=== PATIENT | female | born 1990 | race Caucasian/White ===

== ENCOUNTER 2025-02-19 20:30 | Emergency (ER) | payer OTHER, SELFPAY ==
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
[2025-02-19 20:33] VITALS: BP 157/97; PULSE 95; RESP 18; TEMP 36.7; O2SAT 98
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
--- OUTSIDE RECORDS SUMMARY | 2025-02-19 21:11 | XMS_ITS | Clinical Summary ---
Author Organization [facility] Medical Office Building B Address [address] [place] [address] Care Team Providers Care Ground Hand Name Role Phone Carmen Adame MD Unavailable [phone] Laura Reza Primary Care Provider + [phone] Allergies No known active allergies Medications desogestreL-ethi nyl estradioL (Isibloom) 0.15-0.03 mg per tablet Take 1 tablet by mouth daily 84 tablet 3 06/21/2024 Active Active Problems Problem Noted Date Diagnosed Date Elevated LFTs 05/25/2024 Acute pancreatitis, unspecif ied complication status, unspecified pancreatitis type 05/24/2024 Morbid obesity with BMI of 40.0-44.9, adult 12/2020 Assessment & Plan (04/01/2023 5:58 AM CDT): Encourage a weight loss program such as WW ( Weight Watchers) incorporating dietary changes and aerobic / weight-bearing exercise at least 4-5 times per week, for at least 30-45 minute sessions. Assessment & Plan (03/25/2022 1:43 PM CDT): Encourage a weight loss program such as WW (Weight Watchers) incorporating dietary changes and aerobic / weight-bearing exercise at least 4-5 times per week, for at least 30-45 minute sessions. Assessment & Plan (01/14/2021 3:46 PM FACILITY MAINTENANCE TECHNICIAN): Encourage a weight loss program such as Weight Watchers incorporating dietary changes and aerobic / weight-bearing exercise at least 4-5 times per week, for at least 30-45 minute sessions. No pathologic diagnosis 03/31/2014 Overview (02/17/2017): No diagnosis Surgical History Surgery Date Site/Laterality Comments COLPOSCOPY 06/21/2018 Medical History Medical History Date Comments Abnormal Pap smear of cervix 09/16/2017 LSI L + HPV Family History Medical History Relation Name Comments Diabetes Father's Sister Diabetes miguel litus; Relation Name Status Comments Father's Sister Social History Tobacco Use Types Packs/Day Years Used Date Smoking Tobacco: Never Smokeless Tobacco: Never Tobacco Cessation:Counseling Given: Not Answered Alcohol Use Standard Drinks/Week Comments No 0 (1 standard drink = 0.6 oz pur e alcohol) [facility] [employer] Answer Date Recorded In the past 12 months has [employer], [employer], oil, or water [employer] threatened to shut off services in your home? No 05/25/2024 Humiliation, Afraid, Rape, and Kick questionnair e Answer Date Recorded Within the last year, have y ou been afraid of your partner or ex-partner? No 05/25/2024 Within the last year, have y ou been humiliated or emotionally abused in other ways by your partner or ex-partner? No Within the last year, have y ou been kicked, hit, slapped, or otherwise physically hurt by your partner or ex-partner? No 05/25/2024 Within the last year, have y ou been raped or forced to have any kind of sexual activity by your partner or ex-partner? No 05/25/2024 Social Connection and Isolat ion Panel [NHANES] Answer Date Recorded In a typical week, how many times do you talk on the phone with family, friends, or neighbors? More than three times a week 05/25/2024 How often do you get togethe r with friends or relatives? Three times a week 05/25/2024 How often do you attend [facility] or jewish services? Never 05/25/2024 Do you belong to any clubs o r organizations such as quaker groups, unions, fraternal or athletic groups, or school groups? Yes 05/25/2024 How often do you attend meet ings of the clubs or organizations you belong to? More than 4 times per year 05/25/2024 Are you , , di vorced, , never , or living with a partner? Living with partner 05/25/2024 AUDIT-C Answer Date Recorded Q1: How often do you have a drink containing alc ohol? Never 06/30/2024 Q2: How many drinks containi ng alcohol do you have on a typical day when you are drinking? 3 or 4 06/30/2024 Q3: How often do you have six or more drinks on one occasion? Monthly 06/30/2024 Overall Financial Resource Strain (CARDIA) Answe r Date Recorded How hard is it for you to pa y for the very basics like food, housing, medical care, and heating? Not hard at all 05/25/2024 PHQ-2 Answer Date Recorded PHQ-2 Total Score (If total score is 3 or more points, staff should administer the PHQ-9) 0 05/25/2024 [facility] - Occupational Stress Questionnaire Answer Date Recorded Do you feel stress - tense, restless, nervous, or anxious, or unable to sleep at night because your mind is troubled all the time - these days? Only a little 05/25/2024 Exercise Vital Sign Answer Date Recorde d On average, how many days pe r week do you engage in moderate to strenuous exercise (like a brisk walk)? 4 days 05/25/2024 On average, how many minutes do you engage in exercise at this level? 30 min 05/25/2024 Hunger Vital Sign Answer Date Recorded Within the past 12 months, y ou worried that your food would run out before you got the money to buy more. Never true 05/25/20 24 Within the past 12 months, t he food you bought just didn't last and you didn't have money to get more. Never true 05/25/2024 PRAPARE - Transportation Answer Date Re corded In the past 12 months, has l ack of transportation kept you from medical appointments or from getting medications? No 05/15 In the past 12 months, has l ack of transportation kept you from meetings, work, or from getting things needed for daily living? No 05/25/2024 PHQ-9 Answer Date Recorded PHQ-9 Total Score 0 05/25/2024 Housing Stability Vital Sign Answer Jassi e Recorded In the last 12 months, was t here a time when you were not able to pay the mortgage or rent on time? No 05/25/2024 In the past 12 months, how m any times have you moved where you were living? 1 05/25/2024 At any time in the past 12 m [facility], were you homeless or living in a long-term (including now)? No 05/25/2024 Personal Safety Answer Date Recorded Have you ever been in or are you currently in a harmful physical or emotional relationship or is someone making you feel afraid or unsafe? Denies 05/24/2024 Education Answer Date Recorded What is the highest level of school you have completed or the highest degree you have received? 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 Gender Identity Not on file Sexual Orientation Not on file Obstetrics History Para Term AB IAB SAB Ectopic Multiple Livin g Live Births 0 0 0 0 0 0 0 0 0 0 0 Last Filed Vital Signs Vital Sign Reading Time Taken Comments Blood Pressure 126/83 06/30/2024 1:54 PM CDT Pulse 74 06/30/2024 1:54 PM CDT Temperature 36.5 C (97.7 F) 05/25/2024 3:21 PM CDT Respiratory Rate 17 05/25/2024 3:21 PM CDT Oxygen Saturation 98% 06/30/2024 1:54 PM CDT Inhaled Oxygen Concentration - - Weight 108.3 kg (238 lb 11.2 oz) 06/30/2024 1:54 PM CDT Height 167.6 cm (5' 6 ) 06/30/2024 1:54 PM CDT Body Mass Index 38.53 06/30/2024 1:54 PM CDT Plan of Treatment Health Maintenance Due Date Last Done Comments Hepatitis C Screening 1992 Varicella Vaccines (1 of 2 - 13+ 2-dose series) 2005 DTaP/Tdap/Td Vaccine (6 - Tdap) 06/16/2007 06/15/2007, 02/08/1998, 07/17/1994, Additional history exists HPV Vaccines (2 - 3-dose series) 03/21/2009 02/21/2009 Cervical Cancer Screening 03/31/20242022, 03/25/2022, 01/14/2021, Additional history exists Covid-19 Vaccine ( season) 2024 04/24/2021 Regular Well Visit/Exam 18-64 04/04/2025 04/04/2024, 03/31/2023, 03/25/2022, Additional history exists Depression Screening 05/25/2025 05/25/2024, 04/04/2024, 03/25/2022, Additional history exists Influenza Vaccine (Season Ended) 2025 Hepatitis B Screening Completed 12/09/1993 , 1992, 1992 Pneumococcal vaccine <65 Aged Out No longer eligible based on patient's age to complete this topic Procedures Procedure Name Priority Date/Time Associated Diagnosis Comments PAP AND HIGH RISK HPV, REFLEX TO GENOTYPING Routine 03/31/2023 4:09 PM CDT Well woman exam from Last 3 Months or Most Recently Relevant to Health Maintenance Results * Pap and High Risk HPV, reflex to Genotyping (03/31/2023 4:09 PM CDT) CLINICAL INFORMATION: [facility] Comment:None given LMP [facility] Comment:None given Previous Pap [facility] Comment:None given Prev. Bx [facility] Comment:None given SOURCE: [facility] Comment:Cervix, Endocervix Pap, specimen adequacy [facility] Comment: Satisfactory for evaluation. Endocervical/transformation zone component present. Age and/or menstrual status not provided HPV interp [facility] Comment:Negative for intraep ithelial lesion or malignancy. Warp Tension Tester Que [facility] Comment: TLS, CT(ASCP) CT Screening Location: [place] [address] Comment [facility] Comment: EXPLANATORY NOTE: The Pap is a screening test for cervical cancer. It is not a diagnostic test and is subject to false negative and false positive results. It is most reliable when a satisfactory sample, regularly obtained, is submitted with relevant clinical findings and history, and when the Pap result is evaluated along with historic and current clinical information. Human papillomavirus DNA, High Risk E6/E7 Not Detected NOT DETECTED [facility] Comment: Not Detected High Risk HPV types (16,18,31,33,35,39,45,51,52, 56,58,59,66,68) were not detected. Other HPV types which cause anogenital lesions may be present. The significance of the other types of HPV in malignant processes has not been established. Methodology: Real Time PCR Thin prep 03/31/2023 4:09 PM CDT 04/01/2023 3:42 AM CDT Sherita Campos MACHINE [facility] CYTOLOGY ORDERABLES F inal Result [facility] [address] [place] [address] [facility] [address] [facility] [place] [address] from Last 3 Months or Most Recently Relevant to Health Maintenance [facility] Advance Directives For more information, please contact: [phone] * Full Code (Latest Code Status on File) Date Activated Date Inactivated Comments 05/24/2024 1:00 PM 05/25/2024 10:58 PM Care Teams Ground Hand Relationship Specialty Start Date End Date Laura Reza PA 2 [facility] ELISEOChrissy CRUZ [address] [address] PCP - General Bi Lead 06/30/24 Carmen Adame MD 4 [facility] [address] [address] Consulting Physician Gastroenterology 05/25/24
--- OUTSIDE RECORDS SUMMARY | 2025-02-19 21:11 | XMS_ITS | Referral Summary ---
Author Organization [facility] Medical Office Building B Address [address] [place] [address] Care Team Providers Care Chief Technician X Ray Name Role Phone Carmen Adame MD Unavailable [phone] Laura Reza Primary Care Provider + [phone] Allergies No known active allergies Medications desogestreL-ethi [...] sessions. Assessment & Plan (01/14/2021 3:46 PM ADJUNCT INSTRUCTOR CHEMISTRY): Encourage a weight loss program such as Weight Watchers incorporating dietary changes and aerobic / weight-bearing exercise at least 4-5 times per week, for at least 30-45 minute sessions. No pathologic diagnosis 03/31/2014 Overview (02/17/2017): No diagnosis Social History Tobacco Use Types Packs/Day Years Used Date Smoking Tobacco: Never Smokeless Tobacco: Never Tobacco Cessation:Counseling Given: Not Answered Alcohol Use Standard Drinks/Week Comments No 0 (1 standard drink = 0.6 oz pur e alcohol) [facility] Utilities Answer Date Recorded In the past 12 months has e [employer], gas, oil, or water [employer] threatened to shut off services in your [...] week 05/25/2024 How often do you attend chur ch or oriental orthodox services? Never 05/25/2024 Do you belong to any clubs o r organizations such as moravian groups, unions, fraternal or athletic groups, or [...] staff should administer the PHQ-9) 0 05/25/2024 [facility] - Occupational Stress Questionnaire Answer Date Recorded [...] any time in the past 12 m [facility], were you homeless or living in a care home (including now)? 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 Gender Identity Not on file Sexual Orientation Not on file Last Filed Vital Signs Vital Sign Reading [...] 06/30/2024 1:54 PM CDT Plan of Treatment Not on file Procedures Procedure Name Priority Date/Time Associated Diagnosis Comments PAP AND HIGH RISK HPV, REFLEX TO GENOTYPING Routine 03/31/2023 4:09 PM CDT Well woman exam from Last 3 Months or Most Recently Relevant to Health Maintenance Results * Pap and High Risk HPV, reflex to Genotyping (03/31/2023 4:09 PM CDT) CLINICAL INFORMATION: [facility] Comment:None given LMP [facility] Comment:None given Previous Pap [facility] Comment:None given Prev. Bx [facility] Comment:None given SOURCE: [facility] Comment:Cervix, Endocervix Pap, specimen adequacy [facility] Comment: Satisfactory for evaluation. Endocervical/transformation zone component present. Age and/or menstrual status not provided HPV interp [facility] Comment:Negative for intraep ithelial lesion or malignancy. [facility] Comment: TLS, CT(ASCP) CT Screening Location: [address] [address] Comment [facility] Comment: EXPLANATORY NOTE: The Pap is [...] High Risk E6/E7 Not Detected NOT DETECTED [facility] Comment: Not Detected High Risk HPV types (16,18,31,33,35,39,45,51,52, 56,58,59,66,68) were not detected. Other HPV types which cause anogenital lesions may be present. The significance of the other types of HPV in malignant processes has not been established. Methodology: Real Time PCR Thin prep 03/31/2023 4:09 PM CDT 04/01/2023 3:42 AM CDT Sherita Campos [facility] CYTOLOGY ORDERABLES F inal Result [address] [address] Dick Thomas/[place] [address] [facility] [place] [address] from Last 3 Months or Most Recently Relevant to Health Maintenance Insurance [facility] HMO Advance Directives For more information, please contact: [phone] * Full Code (Latest Code Status on File) Date Activated Date Inactivated Comments 05/24/2024 1:00 PM 05/25/2024 10:58 PM Care Teams Chief Technician X Ray Relationship Specialty Start Date End Date Laura Reza PA 2 [facility] ANTHONY [facility] [address] [place] [address] PCP - General Mica Washer Gluer 06/30/24 Carmen Adame MD [address] [place] [address] [address] [place] [address] Consulting Physician Gastroenterology 05/25/24
--- OUTSIDE RECORDS SUMMARY | 2025-02-19 21:11 | XMS_ITS | Clinical Summary ---
Author Organization [facility] Address [address] [place] [address] Care Team Providers Care Area Representative Name Role Phone Laura Reza Primary Care Provider + Joselo Ortega MD Unavailable Allergies No known active allergies Medications Isibloom 0.15-30 MG-MCG Tablet 10/28/2022 Activ e Multiple Vitamin (MULTIVITAMIN PO) Take by mouth. Active Multivitamin-Min erals (Hair Skin & Nails Advanced) Tablet Take 1 Tablet by mouth daily. Active COLLAGEN PO Take by mouth. Active Bacillus Coagulans-Inulin (PROBIOTIC-PREBI OTIC PO) Take by mouth. Active Active Problems No known active problems Immunizations Immunization Administration Dates Next Due Covid-19, Mrna, Lnp-s, Pf, 3 0 Mcg/0.3 Ml Dose ([employer]) 04/24/2021 DTP Vaccine 02/08/1998, 4,05/09/1993,02/18,1992 Hepatitis B Vaccine, Pediatric/adolescent 12/09/1993,1992,1992 Hib Vaccine,unspecified Formulation 12/1993,05/09/1993,02/18/1993,12/30 Human Papillomavirus (HPV) V accine, Bivalent 02/21/2009 MMR Vaccine 02/08/1998,03/16/1994 Meningococcal Vaccine, Unspe cified Formulation 02/21/2009 Polio Vaccine,unspecified Formulation 02/08/1998 TD VACCINE 06/15/2007 Family History Medical History Relation Name Comments No Known Problems Father No Known Problems Half-Brother No Known Problems Maternal Grandfather Chronic Obstructive Pulmonary Disease Maternal Grandmo ther Depression Mother Other-comment Mother Vasculitis Rheumatoid Arthritis Mother Dementia Paternal Grandmother Diabetes Paternal Uncle Relation Name Status Comments Father Alive Half-Brother Alive Maternal Grandfather Alive Maternal Grandmother Mother Alive Paternal Grandfather Paternal Grandmother Paternal Uncle Social History Tobacco Use Types Packs/Day Years Used Date Smoking Tobacco: Never Smokeless Tobacco: Never Tobacco Cessation:Counseling Given: Not Answered Alcohol Use Standard Drinks/Week Comments Yes 0 (1 standard drink = 0.6 oz pur e alcohol) socially Sexually Active Control Partners Comments Yes Male Comments Unknown Sex and Gender Information Value Date Recorded Sex Assigned at Not on file Legal Sex Female 5:17 PM CDT Gender Identity Not on file Sexual Orientation Not on file Last Filed Vital Signs Vital Sign Reading Time Taken Comments Blood Pressure 120/74 12/21/2023 4:26 PM PRODUCTION PATTERN MAKER Pulse 101 12/21/2023 4:26 PM PRODUCTION PATTERN MAKER Temperature 38.7 C (101.7 F) 12/21/2023 4:26 PM PRODUCTION PATTERN MAKER Respiratory Rate 16 12/21/2023 4:26 PM PRODUCTION PATTERN MAKER Oxygen Saturation 99% 12/21/2023 4:26 PM PRODUCTION PATTERN MAKER Inhaled Oxygen Concentration - - Weight 114.3 kg (252 lb) 03/02/2023 9:26 AM CDT Height 165.1 cm (5' 5 ) 03/02/2023 9:26 AM CDT Body Mass Index 41.93 03/02/2023 9:26 AM CDT Plan of Treatment Health Maintenance Due Date Last Done Comments Hepatitis C Virus (HCV) Screening 1992 DTaP/Tdap/Td Immunization (6 - Tdap) 06/16/2007 06/15/2007, 02/08/1998, 07/17/1994, Additional history exists HPV/Cotest 2022 Influenza Immunization (#1) 2024 SARS-COV-2 Immunization ( season) 2024 04/24/2021 Cervical Cancer Screening (CCS) 03/19/2025 Pap Smear 03/19/2025 03/19/2022 Respiratory Syncytial Virus (RSV) Immunization (Adult) (1 - 1-dose 75+ series) 2067 Hepatitis B Immunization Completed 994, 1992, 1992 Meningococcal Immunization (ACWY) Completed 02/21/2009 Pneumococcal Immunization Combined Aged Out No longer eligible based on patient's age to complete this topic Rotavirus Immunization Aged Out No lo nger eligible based on patient's age to complete this topic Insurance [employer] Care Teams Area Representative Relationship Specialty Start Date End Date Laura Reza PAC [address] [place] [address] PCP - General Physician Program Analyst 02/05/23 Joselo Ortega MD #[address] [address] Consulting Physician Colon and Rectal Surgery 02/25/23
[2025-02-19] MEDS: HYDROcodone/acetaminophen (*CRX) 5-325 MG TABLET 1 TAB PO (21:13)
[2025-02-19] MEDS: IBUPROFEN 600 MG TABLET PO (21:13)
[2025-02-19 21:51] VITALS: BP 137/80; PULSE 79; RESP 18; O2SAT 98
== END 2025-02-19 21:51 | disposition home or self-care (01) ==
PROVIDERS: Emergency Provider Emergency Medicine; PCP Physician Assistant
DX: S80.11XA Contusion of right lower leg, initial encounter (principal); V43.62XA Car passenger injured in collision with other type car in traffic accident, initial encounter
CPT/HCPCS: 73562; 73590; 99284; A9270